=== PATIENT | female | born 1990 | race Caucasian/White ===

== ENCOUNTER 2025-07-08 20:30 | Emergency (ER) | payer MEDICAID ==
[~2025-07-08] VITALS: Ht 162.6 cm; Wt 77.0 kg
[2025-07-08 21:12] VITALS: TEMP 37.1; O2SAT 98
[2025-07-08 21:51] LABS: BASOPHILS % 0.6 % (0.0-2.0); EOSINOPHILS % 1.1 % (0.0-5.0); HEMATOCRIT. 31.3 % (36.0-48.0); HEMOGLOBIN. 10.1 g/dL (12.0-16.0); LYMPHOCYTES % 30.9 % (20.0-50.0); MEAN PLATELET VOLUME 8.1 fl (7.4-10.4); MONOCYTES % 7.5 % (2.0-8.0); NEUTROPHILS % 59.9 % (40.0-76.0); PLATELET 289 x1000/uL (130-400); RED BLOOD CELL COUNT 4.09 mill/uL (4.2-5.4); RED CELL DISTRIBUTION WIDTH 15.9 % (11.6-14.6)
[2025-07-08 22:05] LABS: CREATININE 0.8 mg/dL (0.6-1.0); UREA NITROGEN BLOOD 9 mg/dL (9-23)
[2025-07-08 22:06] LABS: PROTEIN TOTAL 7.4 g/dL (6.0-8.3)
[2025-07-08 22:07] LABS: ASPARTATE AMINOTRANSFERASE 14 IU/L (<34); BILIRUBIN DIRECT < 0.1 mg/dL (<=3.0); BILIRUBIN TOTAL 0.2 mg/dL (0.1-1.0)
[2025-07-08 22:08] LABS: HCG SCREEN NEGATIVE
[2025-07-08] MEDS: SENNOSIDES/DOCUSATE SOD 8.6/50MG TABLET PO PRN (22:27)
[2025-07-08] MEDS: POLYETHYLENE GLYCOL 3350 (17GM) 1 DOSE PACK PO ONE (22:27)
[2025-07-08] MEDS: DOCUSATE SODIUM 100MG CAPSULE PO ONE (22:27)
[2025-07-08] MEDS ORDERED: POLY17PO3 MT (22:37)
[2025-07-08] MEDS ORDERED: DOCU-138 MT (22:37)
[2025-07-08] MEDS ORDERED: SENN-362 MT (22:37)
[2025-07-08 23:03] VITALS: O2SAT 100
[2025-07-08 23:40] VITALS: BP 123/74; PULSE 61; RESP 18
[2025-07-08] MEDS: KETOROLAC 30MG/ML VIAL IM ONE (23:40)
== END 2025-07-08 23:44 | disposition home or self-care (01) ==
LOC: ER 20:30
DX: K59.00 Constipation, unspecified (principal); Z98.890 Other specified postprocedural states; Z79.899 Other long term (current) drug therapy
CPT/HCPCS: 80076; 80048; 84703; 83690; 85025; 36415; 96372; 99284; Z7610; J1885